=== PATIENT | male | born 1960 | race Caucasian/White ===

== ENCOUNTER 2017-05-23 05:21 | Emergency (ER) | payer BC ==
[2017-05-23] MEDS: predniSONE 20 MG TAB PO (06:33)
[2017-05-23] MEDS: HYDROCODONE/APAP (5/325) TAB PO (06:34)
[2017-05-23] MEDS: IPRATROPIUM (NEB) 0.5 MG/2.5 ML AMP INH (06:37)
[2017-05-23] MEDS: ALBUTEROL 0.5% (NEB) 2.5 MG/0.5 ML AMP INH (06:38)
== END 2017-05-23 08:25 | disposition home or self-care (01) ==
LOC: FTE 05:21
DX: R05 Cough (principal); K08.89 Other specified disorders of teeth and supporting structures; J45.901 Unspecified asthma with (acute) exacerbation
CPT/HCPCS: 71045; 94644; 99284-25

== ENCOUNTER 2017-06-05 11:01 | Emergency (ER) | payer BC ==
[2017-06-05] MEDS: IPRATROPIUM (NEB) 0.5 MG/2.5 ML AMP NEB (12:12)
[2017-06-05] MEDS: ALBUTEROL 0.083% (NEB) 2.5 MG/3 ML AMP NEB (12:12)
== END 2017-06-05 14:57 | disposition home or self-care (01) ==
LOC: FTE 11:01
DX: J45.901 Unspecified asthma with (acute) exacerbation (principal)
CPT/HCPCS: 71045; 94664; 99284-25

== ENCOUNTER 2017-10-16 23:58 | Emergency (ER) | payer BC ==
[2017-10-17] MEDS: LEVALBUTEROL (NEB) 1.25 MG/0.5 ML AMP INH (02:46)
[2017-10-17] MEDS: IPRATROPIUM (NEB) 0.5 MG/2.5 ML AMP INH (02:46)
[2017-10-17] MEDS: SOD CHLORIDE 0.9% 1,000 ML IV (02:54)
[2017-10-17] MEDS: METHYLPREDNISOLONE 125 MG INJ IV (02:54)
[2017-10-17] MEDS: LEVOFLOXACIN 750MG/D5W (PMX) 150 ML IVPB (05:07)
[2017-10-17 05:32] LABS: AADO2 Arterial 32.2 mmHg (7.0-24.0); Allen Test ACCEPTAB; Arterial Base Excess 0.6 mmol/L (-3.0-3); Arterial Blood Gas Oxygen Sat 92.9 mmHG (95.0-98.0); Arterial COHb 0.6 % (0.0-3.0); Arterial Fraction of Oxyhgb 92.2 % (93.0-99.0); Arterial HCO3 25.8 mmol/L (22.0-26.0); Arterial MetHb 0.2 % (0.0-1.5); Arterial Total Hemglobin 13.7 g/dl (12.0-18.0); Arterial pCO2 43.7 mmhg (35-45); MODE ROOM AIR; Site Right Radial
== END 2017-10-17 06:54 | disposition home or self-care (01) ==
LOC: E/R 23:58
DX: J18.9 Pneumonia, unspecified organism (principal); J45.909 Unspecified asthma, uncomplicated
CPT/HCPCS: 36600; 71045; 82803; 94644; 96365; 96366; 96375; 99284-25

== ENCOUNTER 2017-11-20 17:53 | Emergency (ER) | payer SELFPAY, BC | END 2017-11-21 00:13 | disposition left against medical advice (07) | LOC: E/R 17:53 | DX: Z53.21 Procedure and treatment not carried out due to patient leaving prior to being seen by health care provider (principal) ==

== ENCOUNTER 2018-05-15 06:30 | Emergency (ER) | payer BC ==
[2018-05-15] MEDS: DEXAMETHASONE 10 MG/ML 1 ML INJ IM (08:28)
[2018-05-15] MEDS: IPRATROPIUM (NEB) 0.5 MG/2.5 ML AMP NEB (08:33)
[2018-05-15] MEDS: ALBUTEROL 0.5% (NEB) 2.5 MG/0.5 ML AMP INH (08:33)
== END 2018-05-15 11:36 | disposition home or self-care (01) ==
LOC: FTE 06:30
DX: J45.901 Unspecified asthma with (acute) exacerbation (principal); J18.9 Pneumonia, unspecified organism; R91.8 Other nonspecific abnormal finding of lung field
CPT/HCPCS: 71045; 71250; 94644; 96372; 99285-25

== ENCOUNTER 2018-06-05 21:31 | Emergency (ER) | payer BC ==
[2018-06-05] MEDS: DEXAMETHASONE 10 MG/ML 1 ML INJ IM (22:55)
[2018-06-05] MEDS: ALBUTEROL 0.5% (NEB) 2.5 MG/0.5 ML AMP INH (23:08)
[2018-06-05] MEDS: IPRATROPIUM (NEB) 0.5 MG/2.5 ML AMP INH (23:09)
== END 2018-06-06 00:34 | disposition home or self-care (01) ==
LOC: FTE 06-06 00:34
DX: J45.41 Moderate persistent asthma with (acute) exacerbation (principal); J40 Bronchitis, not specified as acute or chronic
CPT/HCPCS: 94644; 96372; 99284-25